=== PATIENT | male | born 1965 | race Caucasian/White ===

== ENCOUNTER 2017-10-31 07:28 | Day surgery (SDC) | payer MEDICARE, OTHER ==
[~2017-10-31 07:28] MED LIST: DIAZEPAM 5 MG TAB PO; DIPHENHYDRAMINE 50 MG CAP PO; FAMOTIDINE 20 MG TAB PO; SOD CHLORIDE 0.45% 1,000 ML IV
[2017-10-31 08:25] LABS: ADD MAN DIFF? NO
[2017-10-31 08:28] LABS: BASOPHILS % 0.4 % (0.0-2.0); EOSINOPHILS # 0.1 10^3/ul (0.0-0.5); EOSINOPHILS % 1.6 % (0.0-7.0); HEMATOCRIT 44.6 % (42.0-52.0); HEMOGLOBIN 15.2 g/dl (14.0-18.0); LYMPHOCYTES # 3.1 10^3/ul (0.8-2.9); LYMPHOCYTES % 37.9 % (15.0-51.0); MEAN CORPUSCULAR HEMOGLOBIN 32.3 pg (29.0-33.0); MEAN CORPUSCULAR HGB CONC 34.1 g/dl (32.0-37.0); MEAN CORPUSCULAR VOLUME 94.7 fl (82.0-101.0); MEAN PLATELET VOLUME 10.5 fl (7.4-10.4); MONOCYTE # 0.4 10^3/ul (0.3-0.9); MONOCYTES % 5.3 % (0.0-11.0); NEUTROPHIL # 4.4 10^3/ul (1.6-7.5); NEUTROPHILS % 54.4 % (39.0-77.0); PLATELET COUNT 230 10^3/UL (140-415); RED BLOOD COUNT 4.71 10^6/ul (4.70-6.10)
[2017-10-31 08:28] LABS: WHITE BLOOD COUNT 8.1 10^3/ul (4.8-10.8)
[2017-10-31 08:48] LABS: CHOLESTEROL 152 mg/dl (100-200)
[2017-10-31 08:48] LABS: ANION GAP 12 (8-16); CARBON DIOXIDE 25 mmol/L (21-31); CHLORIDE 108 mmol/L (97-110); CHOL/HDL RATIO 3.3 RATIO; GLUCOSE 113 mg/dl (70-220); HDL CHOLESTEROL 46 mg/dl (28-71); INR 0.82; LDL CHOLESTEROL,CALCULATED 68 mg/dl; PROTIME 11.4 Sec (11.9-14.9); PT RATIO 0.9; TRIGLYCERIDES 191 mg/dl (0-149)
[2017-10-31 08:49] LABS: PARTIAL THROMBOPLASTIN TIME 26.5 Sec (25.0-35.0)
[2017-10-31 08:50] LABS: BLOOD UREA NITROGEN 12 mg/dl (7-20); CALCIUM 8.9 mg/dl (8.4-10.2); CREATININE 0.75 mg/dl (0.61-1.24); SODIUM 141 mmol/L (135-144)
[2017-10-31] MEDS ORDERED: MIDAZOLAM 1 MG/ML 2 ML INJ (08:54)
[2017-10-31] MEDS ORDERED: LIDOCAINE 1% (MDV) 20 ML INJ (08:54)
[2017-10-31] MEDS ORDERED: FENTAnyl 50 MCG/ML VIAL (08:54)
[2017-10-31] MEDS ORDERED: VERAPAMIL 5 MG INJ (08:54)
[2017-10-31] MEDS ORDERED: HEPARIN 1000 UNITS/ML 10 ML INJ (08:54)
[2017-10-31] MEDS ORDERED: IODIXANOL LOCM 100 ML BTL (08:54)
[2017-10-31] MEDS ORDERED: NITROGLYCERIN (IC) 100 MCG/ML INJ (08:55)
[2017-10-31] MEDS ORDERED: SOD CHLORIDE 0.9% 500 ML (09:59)
[2017-10-31] MEDS ORDERED: SOD CHLORIDE 0.9% 1,000 ML IV (10:07)
[2017-10-31] MEDS ORDERED: morphine 2 MG INJ IV (10:30)
[2017-10-31] MEDS ORDERED: AL HYDROX/MG HYDROX/SIMETH 30 ML CUP PO (10:30)
[2017-10-31] MEDS ORDERED: ONDANSETRON 4 MG INJ IV (10:30)
[2017-10-31] MEDS: ACETAMINOPHEN 325 MG TAB PO (12:38)
== END 2017-10-31 14:50 | disposition home or self-care (01) ==
LOC: SDS 07:28
DX: I25.10 Atherosclerotic heart disease of native coronary artery without angina pectoris (principal); I10 Essential (primary) hypertension; E78.5 Hyperlipidemia, unspecified; E11.9 Type 2 diabetes mellitus without complications
CPT/HCPCS: 71045; 80048; 80061; 82962; 85025; 85610; 85730; 93005; 93458

== ENCOUNTER 2017-11-02 12:22 | Emergency (ER) | payer MEDICARE, OTHER ==
[2017-11-02 17:27] LABS: ADD MAN DIFF? NO
[2017-11-02 17:29] LABS: BASOPHILS % 0.2 % (0.0-2.0); EOSINOPHILS # 0.3 10^3/ul (0.0-0.5); HEMATOCRIT 47.8 % (42.0-52.0); HEMOGLOBIN 16.1 g/dl (14.0-18.0); LYMPHOCYTES % 11.9 % (15.0-51.0); MEAN CORPUSCULAR HEMOGLOBIN 32.5 pg (29.0-33.0); MEAN CORPUSCULAR HGB CONC 33.7 g/dl (32.0-37.0); MEAN CORPUSCULAR VOLUME 96.4 fl (82.0-101.0); MEAN PLATELET VOLUME 10.3 fl (7.4-10.4); MONOCYTE # 0.5 10^3/ul (0.3-0.9); MONOCYTES % 5.9 % (0.0-11.0); NEUTROPHIL # 6.8 10^3/ul (1.6-7.5); NEUTROPHILS % 78.5 % (39.0-77.0); PLATELET COUNT 207 10^3/UL (140-415); RED BLOOD COUNT 4.96 10^6/ul (4.70-6.10); RED CELL DISTRIBUTION WIDTH 13.2 % (11.5-14.5)
[2017-11-02 17:29] LABS: WHITE BLOOD COUNT 8.7 10^3/ul (4.8-10.8)
[2017-11-02] MEDS: FAMOTIDINE 20 MG INJ IV (17:40)
[2017-11-02] MEDS: METHYLPREDNISOLONE 125 MG INJ IV (17:40)
[2017-11-02] MEDS: SOD CHLORIDE 0.9% 1,000 ML IV (17:40)
[2017-11-02] MEDS: DIPHENHYDRAMINE 50 MG INJ IV (17:40)
[2017-11-02 17:56] LABS: ALANINE AMINOTRANSFERASE 44 IU/L (13-69); ALBUMIN 4.3 g/dl (3.3-4.9); ALBUMIN/GLOBULIN RATIO 1.53; ALKALINE PHOSPHATASE 69 IU/L (42-121); ANION GAP 14 (8-16); ASPARTATE AMINO TRANSFERASE 22 IU/L (15-46); BILIRUBIN,INDIRECT 0.4 mg/dl (0-1.1); BILIRUBIN,TOTAL 0.4 mg/dl (0.2-1.3); BLOOD UREA NITROGEN 8 mg/dl (7-20); CALCIUM 8.9 mg/dl (8.4-10.2); CARBON DIOXIDE 28 mmol/L (21-31); CHLORIDE 103 mmol/L (97-110); CREATININE 0.81 mg/dl (0.61-1.24); GLUCOSE 116 mg/dl (70-220); LIPASE 84 U/L (23-300); SODIUM 141 mmol/L (135-144); TOTAL PROTEIN 7.1 g/dl (6.1-8.1)
[2017-11-02 18:08] LABS: TROPONIN-I < 0.012 ng/ml (0.00-0.12)
[2017-11-02] MEDS ORDERED: ACETAMINOPHEN 500 MG TAB (20:20)
== END 2017-11-02 20:30 | disposition home or self-care (01) ==
LOC: E/R 12:22
DX: R22.42 Localized swelling, mass and lump, left lower limb (principal); T50.8X5A Adverse effect of diagnostic agents, initial encounter; I10 Essential (primary) hypertension; F17.210 Nicotine dependence, cigarettes, uncomplicated; Z79.84 Long term (current) use of oral hypoglycemic drugs
CPT/HCPCS: 36415; 80053; 83690; 84484; 85025; 93005; 96374; 96375; 99284-25